=== PATIENT | male | born 1995 | race Caucasian/White ===

== ENCOUNTER 2016-11-08 08:42 | Emergency (ER) | payer OTHER ==
[2016-11-08] MEDS ORDERED: SODIUM CHLORIDE FLUSH 0.9% 10 ML SYRINGE IVP ONE (09:29)
--- NOTE | 2016-11-08 09:31 | ED Physician Documentation ---
History of Present Illness - Stated complaint Stated Complaint: SYNCOPE - Chief complaint Chief Complaint: General - Additonal information Additional information: hx from pt and SO healthy 21 y/o male had syncope / possibly a seizure last night approx midnight SO describes him as acting normally then suddenly becoming very stiff and shaking all over in a very weird way then collapsing to the ground, was breathing and speaking but repetitive lasted approx 20 min then he recovered today he feels generally weak and tired has a mild ALVARADO no recent fever cough NVD does state he has had mild episodes of cp and soa off and on for a few weeks, sometimes but always related to exertion alos has back pain sometimes - not nec related to the cp and soa recent plane trip from [place] no foreign travel no leg pain or swelling takes no meds, no supplements either no hx same fhx strokes Review of Systems Constitutional: denies: Fever, Chills Cardiac: reports: Chest pain / pressure Respiratory: reports: Dyspnea. denies: Cough GI: denies: Abdominal Pain, Nausea, Vomiting, Diarrhea Neurologic: reports: Generalized weakness, Headache Endocrine: denies: Easy bruising / bleeding Immunocompromised: denies: Immunocompromised PD PAST MEDICAL HISTORY - Past Medical History Past Medical History: No - Past Surgical History Past Surgical History: Yes HEENT: Myringotomy (tubes) - Present Medications Home Medications: Ambulatory Orders Medication Instructions Recorded Confirmed No Known Home Medications [No 11/08/16 11/08/16 Known Home Medications] - Allergies Allergies/Adverse Reactions: Allergies Allergy/AdvReac Type Severity Reaction Status Date / Time No Known Drug Allergies Allergy Verified 11/08/16 08:55 - Social History Does the pt smoke?: No Smoking Status: Never smoker Does the pt have substance abuse?: No PD ED PE NORMAL - Vitals Vital signs reviewed: Yes - HEENT HEENT: Atraumatic - Neck Neck: Supple, no meningeal sign - Cardiac Cardiac: RRR, No murmur - Respiratory Respiratory: No respiratory distress, Clear bilaterally - Abdomen Abdomen: Soft, Non tender - Derm Derm: Normal color - Extremities Extremities: No deformity - Neuro Neuro: Alert and oriented X 3, brush sander 2-12 intact, No motor deficit, No sensory deficit, Normal speech Results - Vitals Vitals: Vital Signs - 24 hr 11/08/16 11/08/16 11/08/16 08:43 09:23 09:53 Temperature 36 C L 36.1 C L Heart Rate 61 57 L 55 L Respiratory 16 15 16 Rate Blood Pressure 114/75 120/72 119/66 O2 Saturation 100 98 100 11/08/16 11/08/16 11/08/16 10:20 11:06 12:33 Temperature 36.5 C Heart Rate 58 L 58 L 56 L Respiratory 14 14 12 Rate Blood Pressure 122/70 120/77 111/50 L O2 Saturation 100 100 96 Oxygen O2 Source Room air - EKG (time done) 0851 Rate: Rate (enter#) (57) Rhythm: NSR [place]: Normal Intervals: Normal [place] QRS: Normal Ischemia: Normal ST segments - Labs Labs: Laboratory Tests 11/08/16 11/08/16 11/08/16 09:29 09:29 09:29 WBC 5.7 RBC 4.98 Hgb 15.1 Hct 44.9 MCV 90.3 MCH 30.4 MCHC 33.6 RDW 12.8 Plt Count 224 MPV 7.8 Neut # 3.7 Lymph # 1.4 L Cobb # 0.5 Eos # 0.1 Baso # 0.0 Absolute Nucleated RBC 0.00 Nucleated RBC % 0.0 D-Dimer < 200.0 L Sodium 140 Potassium 4.0 Chloride 105 Carbon Dioxide 26 Anion Gap 9.0 BUN 14 Creatinine 0.9 Estimated GFR (MDRD) 105 Glucose 91 Calcium 9.6 - Rads (name of study) CTH Radiology: See rad report (neg) CXR Radiology: See rad report (neg) echo Radiology: See rad report (nl) PD MEDICAL DECISION MAKING - ED course ED course: syncope vs seisure last night recent cp and soa and plane travel CTH neg - no mass bleed etc seen to incite seizure - still rec EEG maybe MRI as outpt CXR neg d dimer eng and echo shows no RV strain and nl pulm artery - doubt PE as cause of syncope nl EKG echo (no hypertrophic cardiomyopathy / LV outflow obst) and tele for many hr in the ER - might merit event monitor as outpt but at this pt feel safe to dc with PMD fup at [facility] for consideration of event monitor, EEG maybe MRI I called and spoke to [employer] to ensure follow up Departure - Departure Disposition: 01 Home, Self Care Clinical Impression: Syncope and collapse Condition: Good Instructions: ED Fainting Unkn Cause Follow-Up: PAMELA Leydi Stephens [Provider Group] Comments: It is difficult to know if the event was due to syncope or due to a seizure All the tests in the ER have come back fine The C scan did not show a brain tumor or bleeding to cause a seizure The blood work was fine and did not indicate you have a blood clot in your lungs which could cause you to collapse The EKG and many hours on the heart monitor did not show any heart beat irregularities The echocardiogram (ultrasound) of your heart was completely normal as well - no overgrown muscle to block the blood flowing out, no signs of a heart attack, no signs of a blood clot, normal valves and structures So at this point we have carlin all the tests we can in the ER and everything looks good - but we still dont know exactly what happened I think it is safe for you to go home for now as long as another responsible adult can watch over you - you should follow up at [facility] for further evaluation and more testing such as an EEG (brainwave testing to see if you have seizures) , perhaps a MRI of your brain (another kid of brain scan) and a wear at home monitor You should follow up with your command for duty status but I recommend that you not drive a car, operate machinery, fly or deploy until your work up is complete Discharge Date/Time: 11/08/16 13:10
[2016-11-08 09:42] LABS: BASOPHILS % (AUTO) 0.5 %; EOSINOPHILS # (AUTO) 0.1 10^3/uL (0.0-0.7); EOSINOPHILS % (AUTO) 1.2 %; HCT - HEMATOCRIT 44.9 % (42.0-52.0); HGB - HEMOGLOBIN 15.1 g/dL (14.0-18.0); LYMPHOCYTES # (AUTO) 1.4 10^3/uL (1.5-3.5); LYMPHOCYTES % (AUTO) 25.1 %; MEAN CORPUSCULAR HEMOGLOBIN 30.4 pg (27.0-31.0); MEAN CORPUSCULAR HGB CONC 33.6 g/dL (32.0-36.0); MEAN CORPUSCULAR VOLUME 90.3 fL (80.0-94.0); MEAN PLATELET VOLUME 7.8 fL (7.4-11.4); MONOCYTES # (AUTO) 0.5 10^3/uL (0.0-1.0); MONOCYTES % (AUTO) 8.2 %; NEUTROPHILS # (AUTO) 3.7 10^3/uL (1.5-6.6); RED BLOOD COUNT 4.98 10^6/uL (4.70-6.10); RED CELL DISTRIBUTION WIDTH 12.8 % (12.0-15.0); UNCORRECTED WHITE BLOOD COUNT 5.7 x10^3/uL; WHITE BLOOD COUNT 5.7 x10^3/uL (4.8-10.8)
[2016-11-08 09:52] LABS: CALCIUM 9.6 mg/dL (8.5-10.3); CREATININE 0.9 mg/dL (0.6-1.2)
[2016-11-08] MEDS: SODIUM CHLORIDE 0.9% 1,000 ML IV ONE (10:04)
--- NOTE | 2016-11-08 10:09 | CT Preliminary Report ---
Exam: CT Head W/O IMPRESSION: Negative noncontrast head CT. [facility] SITE ID: [id number]
--- NOTE | 2016-11-08 10:10 | XRAY Preliminary Report ---
Exam: XR Chest 2 View PA/LAT IMPRESSION: Normal 2-view chest radiography. [facility] SITE ID: [id number]
--- NOTE | 2016-11-08 10:12 | CT Report ---
EXAM: CT HEAD EXAM DATE: 11/08/2016 09:53 AM. CLINICAL HISTORY: Possible seizure activity by hx. COMPARISON: None. TECHNIQUE: Multiaxial CT images were obtained from the foramen magnum to the vertex. IV contrast: Non e. Reformats: Coronal. In accordance with CT protocol optimization, one or more of the following dose reduction techniques w ere utilized for this exam: automated exposure control, adjustment of mA and/or KV based on patient s ize, or use of iterative reconstructive technique. FINDINGS: Ventricles are normal in size and position. No evidence of acute intracranial hemorrhage or mass effe ct. Visualized portions of the paranasal sinuses and mastoid air cells appear normally aerated. IMPRESSION: Negative noncontrast head CT. [facility] Referring Provider Line: [phone] SITE ID: [id number]
--- NOTE | 2016-11-08 10:13 | XRAY Report ---
EXAM: CHEST RADIOGRAPHY EXAM DATE: 11/08/2016 09:52 AM. CLINICAL HISTORY: Chest pain, syncope. COMPARISON: None. TECHNIQUE: 2 views. FINDINGS: Heart size appears normal. No pulmonary consolidation or edema. IMPRESSION: Normal 2-view chest radiography. [facility] Referring Provider Line: [phone] SITE ID: [id number]
[2016-11-08 12:34] VITALS: BP 111/50
== END 2016-11-08 13:10 | disposition home or self-care (01) ==
LOC: ED 08:42
DX: R55 Syncope and collapse (principal)
CPT/HCPCS: 36415; 70450; 71020; 80048; 85025; 85379; 93005; 93306; 96360; 99284

== ENCOUNTER 2017-11-26 14:14 | Emergency (ER) | payer OTHER ==
[2017-11-26 14:22] VITALS: BP 127/81
[2017-11-26] MEDS ORDERED: LIDOCAINE-EPINEPH-TETRACAINE 3 ML SYRINGE TOP STA (14:35)
--- NOTE | 2017-11-26 14:38 | ED Physician Documentation ---
History of Present Illness - Stated complaint Stated Complaint: HEAD LAC - Chief complaint Chief Complaint: Laceration - Additonal information Additional information: hx from pt 22 AD male hit his forehead with car door small lac no LOC no seizure no neck pain no NV no numbness weakness no blood thinners tdap UTD Review of Systems Ears: denies: Drainage/discharge Nose: denies: Epistaxis Cardiac: denies: Chest pain / pressure Respiratory: denies: Dyspnea GI: denies: Abdominal Pain, Nausea, Vomiting Skin: reports: Laceration (s) Musculoskeletal: denies: Neck pain Neurologic: reports: Headache, Head injury. denies: Focal weakness, Numbness Immunocompromised: denies: Immunocompromised PD PAST MEDICAL HISTORY - Past Medical History Past Medical History: No Cardiovascular: None Respiratory: None Neuro: None Endocrine/Autoimmune: None GI: None : None HEENT: None Psych: None Musculoskeletal: None Derm: None - Past Surgical History Past Surgical History: Yes HEENT: Myringotomy (tubes) - Present Medications Home Medications: Ambulatory Orders Medication Instructions Recorded Confirmed No Known Home Medications 11/08/16 11/26/17 - Allergies Allergies/Adverse Reactions: Allergies Allergy/AdvReac Type Severity Reaction Status Date / Time No Known Drug Allergies Allergy Verified 11/26/17 14:22 - Social History Does the pt smoke?: No Smoking Status: Never smoker Does the pt drink ETOH?: Yes Does the pt have substance abuse?: No - Immunizations Immunizations are current?: Yes - POLST Patient has POLST: No PD ED PE NORMAL - Vitals Vital signs reviewed: Yes - General General: Alert and oriented X 3 - HEENT HEENT: PERRL, Other (small sup Y shaped lac to forehead) - Neck Neck: Supple, no meningeal sign, No bony TTP - Cardiac Cardiac: RRR - Respiratory Respiratory: No respiratory distress, Clear bilaterally - Abdomen Abdomen: Non tender - Neuro Neuro: Alert and oriented X 3, gallery or museum technician 2-12 intact, No motor deficit, No sensory deficit, Normal speech Eye Opening: Spontaneous Motor: Obeys Commands Verbal: Oriented GCS Score: 15 Results - Vitals Vitals: Vital Signs - 24 hr 11/26/17 14:20 Temperature 36.3 C L Heart Rate 87 Respiratory 18 Rate Blood Pressure 127/81 H O2 Saturation 97 Oxygen O2 Source Room air Procedures - Laceration (location) face Length in cm: 1 Wound type: Stellate Neurovascular status: Sensory intact, Motor intact Anesthesia: LET Wound Preparation: Irrigated copiously NS (by nursing) Skin layer closure: Dermabond Other: Patient tolerated well Complexity: Simple Departure - Departure Disposition: 01 Home, Self Care Clinical Impression: Facial laceration Qualifiers: Encounter type: initial encounter Qualified Code(s): S01.81XA - Laceration without foreign body of other part of head, initial encounter Head injury Qualifiers: Encounter type: initial encounter Qualified Code(s): S09.90XA - Unspecified injury of head, initial encounter Condition: Good Instructions: ED Head Injury Closed, ED Laceration Facial Skin Glue Follow-Up: PAMELA Stephens [Provider Group] Comments: We washed the wound carefully and it should not get infected But even with good wound care, some wounds get infected - if you notice increased redness swelling pain or discharge, come back to the ED Forms: Activity restrictions
== END 2017-11-26 15:18 | disposition home or self-care (01) ==
LOC: ED 14:14
DX: S01.81XA Laceration without foreign body of other part of head, initial encounter (principal); S09.90XA Unspecified injury of head, initial encounter; W22.8XXA Striking against or struck by other objects, initial encounter; V48.3XXA Unspecified car occupant injured in noncollision transport accident in nontraffic accident, initial encounter
CPT/HCPCS: 12011; 99283

== ENCOUNTER 2018-04-19 18:31 | Emergency (ER) | payer OTHER ==
[2018-04-19] MEDS ORDERED: PROPARACAINE 0.5% OPHTH DROPS 15 ML EACHEYE STA (20:37)
--- NOTE | 2018-04-19 20:45 | ED Physician Documentation ---
PD HPI OPHTHO - Stated complaint Stated Complaint: EYE INJURY - Chief complaint Chief Complaint: Heent - History obtained from History obtained from: Patient - History of Present Illness Timing - onset: Today (22-year-old gentleman, active duty in the [employer] scratched his left eye with a stick [place]. No glasses or contact use.) Review of Systems Constitutional: reports: Reviewed and negative Eyes: reports: Photophobia, Irritation. denies: Loss of vision, Decreased vision, Discharge Ears: denies: Loss of hearing, Ear pain Nose: denies: Rhinorrhea / runny nose PD PAST MEDICAL HISTORY - Past Medical History Cardiovascular: None Respiratory: None Neuro: None Endocrine/Autoimmune: None GI: None : None HEENT: None Psych: None Musculoskeletal: None Derm: None - Past Surgical History Past Surgical History: Yes HEENT: Myringotomy (tubes) - Present Medications Home Medications: Ambulatory Orders Medication Instructions Recorded Confirmed Bupropion HCl [Bupropion HCl Sr] 150 mg PO 04/19/18 04/19/18 Erythromycin Base [Erythromycin 1 appful OP 5XD 7 Days #1 oint...g. 04/19/18 Ophthalmic Ointment] traZODone [Desyrel] 50 mg PO HS 04/19/18 04/19/18 - Allergies Allergies/Adverse Reactions: Allergies Allergy/AdvReac Type Severity Reaction Status Date / Time No Known Drug Allergies Allergy Verified 11/26/17 14:22 - Social History Does the pt smoke?: No Smoking Status: Never smoker Does the pt drink ETOH?: Yes Does the pt have substance abuse?: No - Immunizations Immunizations are current?: Yes - POLST Patient has POLST: No PD ED PE NORMAL - Vitals Vital signs reviewed: Yes - General General: Alert and oriented X 3, No acute distress - HEENT HEENT: PERRL, EOMI, Other (On the left eye there is a large but shallow medial corneal abrasion with negative Umberto sign.) - Neuro Neuro: Alert and oriented X 3, Normal speech - Psych Psych: Normal mood, Normal affect Results - Vitals Vitals: Vital Signs - 24 hr 04/19/18 18:46 Temperature 36.8 C Heart Rate 84 Respiratory 18 Rate Blood Pressure 148/71 H O2 Saturation 99 Oxygen O2 Source Room air PD MEDICAL DECISION MAKING - ED course ED course: This is a 22-year-old gentleman with large corneal abrasion. As is my custom after reviewing the recent literature I squirted out most of the bottle of proparacaine and gave it to him with strict instructions not to use it for more than a day. Departure - Departure Disposition: 01 Home, Self Care Clinical Impression: Corneal abrasion, left Qualifiers: Encounter type: initial encounter Qualified Code(s): S05.02XA - Injury of conjunctiva and corneal abrasion without foreign body, left eye, initial encounter Condition: Good Record reviewed to determine appropriate education?: Yes Instructions: ED Eye Injury Corneal Abrasion Prescriptions: Erythromycin Base [Erythromycin Ophthalmic Ointment] 1 appful OP 5XD 7 Days #1 oint...g. Comments: As discussed you can use the proparacaine every couple of hours for pain, but not for more than a day. [place] Return if worse.
[2018-04-19] MEDS ORDERED: ERYTHROMYCIN OPHTH OINT 1 GM TUBE LEFTEYE STA (20:52)
[2018-04-19 20:59] VITALS: BP 126/78
== END 2018-04-19 20:59 | disposition home or self-care (01) ==
LOC: ED 18:31
DX: S05.02XA Injury of conjunctiva and corneal abrasion without foreign body, left eye, initial encounter (principal); W22.8XXA Striking against or struck by other objects, initial encounter; Y93.01 Activity, walking, marching and hiking; Y92.828 Other wilderness area as the place of occurrence of the external cause
CPT/HCPCS: 99283; J3490